=== PATIENT | male | born 1970 | race African-American/Black ===

== ENCOUNTER 2023-05-21 17:18 | Emergency (ER) | payer SELFPAY ==
[~2023-05-21] VITALS: Ht 175.3 cm; Wt 86.6 kg
[2023-05-21 17:20] VITALS: BP 152/93; O2SAT 97
[2023-05-21] MEDS ORDERED: ACETAMINOPHEN 500 MG TAB PO ONE (19:55)
[2023-05-21 20:40] LABS: RSV AMPLIFICATION NEGATIVE (NEGATIVE)
[2023-05-21 20:52] VITALS: TEMP 100.1
[2023-05-21] MEDS ORDERED: KETOROLAC 60MG 2ML VIAL IM ONE (21:15)
[2023-05-21] MEDS ORDERED: BENZONATATE 100MG CAPSULE PO ONE (21:15)
[2023-05-21] MEDS ORDERED: BENZ200C70 PO (21:18)
[2023-05-21] MEDS ORDERED: NAPR-837 PO (21:18)
[2023-05-21] MEDS ORDERED: MUCI1TAB16 PO (21:18)
== END 2023-05-21 21:36 | disposition home or self-care (01) ==
LOC: M ED 17:18
DX: J06.9 Acute upper respiratory infection, unspecified (principal); R09.1 Pleurisy; R05.9 Cough, unspecified; I10 Essential (primary) hypertension; F17.290 Nicotine dependence, other tobacco product, uncomplicated
CPT/HCPCS: 71046; 87631; 96372; 99283; J1885

== ENCOUNTER 2023-09-04 09:39 | Emergency (ER) | payer SELFPAY ==
[~2023-09-04] VITALS: Ht 175.3 cm; Wt 92.5 kg
[~2023-09-04 09:39] MED LIST: BENZ200C70 PO; MUCI1TAB16 PO; NAPR-837 PO
[2023-09-04] MEDS ORDERED: IBUP-1022 PO (11:28)
[2023-09-04 11:53] VITALS: BP 140/88; TEMP 98.4; O2SAT 97
== END 2023-09-04 11:55 | disposition home or self-care (01) ==
LOC: M ED 09:39
DX: S93.402A Sprain of unspecified ligament of left ankle, initial encounter (principal); X50.1XXA Overexertion from prolonged static or awkward postures, initial encounter; Y92.009 Unspecified place in unspecified non-institutional (private) residence as the place of occurrence of the external cause; Y93.9 Activity, unspecified; Y99.9 Unspecified external cause status; I10 Essential (primary) hypertension

== ENCOUNTER → 2023-11-14 | Outpatient (CLI) | payer SELFPAY ==
[~2023-11-14] MED LIST changes: +AMOX875T2 PO; +IBUP-1022 PO; +SERT-141 PO
== END ==
LOC: M SOG 08:03
PROVIDERS: ATTEND Orthopaedic Surgery
DX: M17.0 Bilateral primary osteoarthritis of knee (principal)

== ENCOUNTER 2023-12-01 08:20 | Emergency (ER) | payer OTHER, SELFPAY ==
[~2023-12-01] VITALS: Ht 175.3 cm; Wt 90.9 kg
[~2023-12-01 08:20] MED LIST changes: -AMOX875T2 PO; -SERT-141 PO
[2023-12-01] MEDS ORDERED: SERT-141 PO (08:43)
[2023-12-01] MEDS: AUGMENTIN 875 MG TAB PO ONE (11:29)
[2023-12-01] MEDS ORDERED: AMOX875T2 PO (12:20)
[2023-12-01 12:21] VITALS: BP 150/86; TEMP 98.3; O2SAT 97
== END 2023-12-01 12:26 | disposition home or self-care (01) ==
LOC: M ED 08:20
DX: S62.634A Displaced fracture of distal phalanx of right ring finger, initial encounter for closed fracture (principal); L03.011 Cellulitis of right finger; W54.0XXA Bitten by dog, initial encounter; Y92.89 Other specified places as the place of occurrence of the external cause; Y93.9 Activity, unspecified; Y99.9 Unspecified external cause status; I10 Essential (primary) hypertension; F17.200 Nicotine dependence, unspecified, uncomplicated

== ENCOUNTER 2024-02-11 09:05 | Day surgery (SDC) | payer OTHER ==
[~2024-02-11] VITALS: Ht 175.3 cm; Wt 88.5 kg
[~2024-02-11 09:05] MED LIST changes: +AMOX875T2 PO; +NS 1,000 ML IV ONE; +SERT-141 PO
[2024-02-11] MEDS ORDERED: propofoL 200 MG/20 ML VIAL As Ordered ONE (10:00)
[2024-02-11] MEDS ORDERED: LIDOCAINE 2% 100MG/5ML SDV (FOR ANES.) As Ordered ONE (10:00)
[2024-02-11 12:11] VITALS: TEMP 96.8
[2024-02-11 12:26] VITALS: BP 160/98; O2SAT 97
== END 2024-02-11 12:43 | disposition home or self-care (01) ==
LOC: M OPP 09:05
PROVIDERS: ATTEND Surgery
DX: Z12.11 Encounter for screening for malignant neoplasm of colon (principal); Z80.0 Family history of malignant neoplasm of digestive organs; K63.5 Polyp of colon; K57.30 Diverticulosis of large intestine without perforation or abscess without bleeding; I10 Essential (primary) hypertension; Z79.899 Other long term (current) drug therapy; Z87.891 Personal history of nicotine dependence

== ENCOUNTER → 2024-02-16 | Outpatient (CLI) | payer OTHER ==
[~2024-02-16] MED LIST changes: -NS 1,000 ML IV ONE
== END ==
LOC: M SOG 07:51
PROVIDERS: ATTEND Orthopaedic Surgery
DX: M17.11 Unilateral primary osteoarthritis, right knee (principal)

== ENCOUNTER → 2024-02-17 | Outpatient (CLI) | payer OTHER | LOC: M SOG 08:01 | PROVIDERS: ATTEND Orthopaedic Surgery | DX: M17.11 Unilateral primary osteoarthritis, right knee (principal); Z53.9 Procedure and treatment not carried out, unspecified reason ==

== ENCOUNTER 2024-07-07 09:58 | Emergency (ER) | payer OTHER ==
[~2024-07-07] VITALS: Ht 175.3 cm; Wt 87.4 kg
[2024-07-07] MEDS: KETOROLAC 60MG 2ML VIAL IM ONE (12:45)
[2024-07-07] MEDS: ACETAMINOPHEN 500 MG TAB PO ONE (12:45)
[2024-07-07 12:50] LABS: BASO # 0.1 10^3/uL (0.0-0.2); BASO % 0.5 % (0.0-1.0); EOS % 0.2 % (0.0-3.0); HEMATOCRIT 46.4 % (42.0-52.0); HEMOGLOBIN 15.8 g/dl (13.5-17.5); LYMPH # 1.9 10^3/uL (1.5-5.0); MEAN CORPUSCULAR HEMOGLOBIN 31.6 pg (27.0-33.0); MEAN CORPUSCULAR HGB CONC 34.1 g/dl (32.0-36.5); MEAN CORPUSCULAR VOLUME 92.8 fl (80.0-96.0); MONO # 0.8 10^3/uL (0.0-0.8); MONO % 6.8 % (2.0-8.0); NEUTROPHILS # 8.8 10^3/uL (1.5-8.5); PLATELET COUNT, AUTOMATED 439 10^3/uL (150-450); WHITE BLOOD COUNT 11.6 10^3/uL (4.0-10.0)
[2024-07-07 13:14] VITALS: BP 161/95; TEMP 98.9; O2SAT 97
[2024-07-07 13:20] LABS: BLOOD UREA NITROGEN 8 MG/DL (9-23); CALCIUM LEVEL 9.6 MG/DL (8.5-10.1); CARBON DIOXIDE LEVEL 27 MMOL/L (20-31); CHLORIDE LEVEL 106 MMOL/L (98-107); CREATININE FOR GFR 0.99 MG/DL (0.70-1.30); GLOMERULAR FILTRATION RATE > 60.0 (>56); GLUCOSE, FASTING 90 MG/DL (60-100); POTASSIUM SERUM 4.3 MMOL/L (3.5-5.1); SODIUM LEVEL 137 MMOL/L (136-145); URIC ACID 9.3 MG/DL (3.7-9.2)
[2024-07-07] MEDS ORDERED: PRED20TA PO ×2 (13:36→13:37)
[2024-07-07] MEDS ORDERED: NAPR-837 PO (13:36)
== END 2024-07-07 13:49 | disposition home or self-care (01) ==
LOC: M ED 09:58
DX: M10.062 Idiopathic gout, left knee (principal); F17.200 Nicotine dependence, unspecified, uncomplicated; M17.12 Unilateral primary osteoarthritis, left knee
CPT/HCPCS: 36415; 73564; 80048; 84550; 85025; 96372; 99284; J1885

== ENCOUNTER 2024-09-10 17:35 | Emergency (ER) | payer OTHER ==
[~2024-09-10] VITALS: Ht 175.3 cm; Wt 86.2 kg
[~2024-09-10 17:35] MED LIST changes: +PRED20TA PO
[2024-09-10 21:01] LABS: BASO # 0.1 10^3/uL (0.0-0.2); BASO % 0.7 % (0.0-1.0); EOS # 0.2 10^3/uL (0.0-0.5); EOS % 1.5 % (0.0-3.0); HEMATOCRIT 44.5 % (42.0-52.0); HEMOGLOBIN 15.5 g/dl (13.5-17.5); LYMPH # 2.3 10^3/uL (1.5-5.0); LYMPH % 21.6 % (24.0-44.0); MEAN CORPUSCULAR HEMOGLOBIN 32.1 pg (27.0-33.0); MEAN CORPUSCULAR HGB CONC 34.8 g/dl (32.0-36.5); MEAN CORPUSCULAR VOLUME 92.1 fl (80.0-96.0); MONO # 0.9 10^3/uL (0.0-0.8); MONO % 8.4 % (2.0-8.0); NEUTROPHILS % 67.4 % (36.0-66.0); PLATELET COUNT, AUTOMATED 515 10^3/uL (150-450); RED BLOOD COUNT 4.83 10^6/uL (4.30-6.10); WHITE BLOOD COUNT 10.4 10^3/uL (4.0-10.0)
[2024-09-10 21:29] LABS: BLOOD UREA NITROGEN 13 MG/DL (9-23); CALCIUM LEVEL 9.8 MG/DL (8.5-10.1); CARBON DIOXIDE LEVEL 25 MMOL/L (20-31); CHLORIDE LEVEL 103 MMOL/L (98-107); CREATININE FOR GFR 1.08 MG/DL (0.70-1.30); GLOMERULAR FILTRATION RATE > 60.0 (>56); GLUCOSE, FASTING 121 MG/DL (60-100); POTASSIUM SERUM 4.8 MMOL/L (3.5-5.1); SODIUM LEVEL 134 MMOL/L (136-145)
[2024-09-10 21:43] LABS: ERYTHROCYTE SEDIMENTATION RATE 43 mm/hr (0-20)
[2024-09-10 21:46] LABS: C REACTIVE PROTEIN QUANTITATIV 4.33 MG/DL (<1.0)
[2024-09-10 21:52] LABS: URIC ACID 10.2 MG/DL (3.7-9.2)
[2024-09-10] MEDS ORDERED: NAPR-837 PO (22:05)
[2024-09-10] MEDS ORDERED: PRED20TA PO (22:05)
[2024-09-10] MEDS: KETOROLAC 60MG 2ML VIAL IM ONE (22:07)
[2024-09-10] MEDS: predniSONE 20 MG TAB PO ONE (22:07)
[2024-09-10 22:10] VITALS: BP 148/96; TEMP 98.1; O2SAT 99
== END 2024-09-10 22:48 | disposition home or self-care (01) ==
LOC: M ED 17:35
DX: M10.9 Gout, unspecified (principal); K22.0 Achalasia of cardia; F17.200 Nicotine dependence, unspecified, uncomplicated
CPT/HCPCS: 80048; 84550; 85025; 85652; 86140; 96372; 99283; J1885; J7512

== ENCOUNTER 2024-09-30 13:20 | Emergency (ER) | payer OTHER ==
[~2024-09-30] VITALS: Ht 175.3 cm; Wt 92.2 kg
[2024-09-30 14:03] LABS: BASO % 0.4 % (0.0-1.0); EOS # 0.1 10^3/uL (0.0-0.5); HEMATOCRIT 41.1 % (42.0-52.0); HEMOGLOBIN 14.3 g/dl (13.5-17.5); LYMPH % 20.3 % (24.0-44.0); MEAN CORPUSCULAR HEMOGLOBIN 31.6 pg (27.0-33.0); MEAN CORPUSCULAR HGB CONC 34.8 g/dl (32.0-36.5); MEAN CORPUSCULAR VOLUME 90.9 fl (80.0-96.0); MONO # 0.7 10^3/uL (0.0-0.8); MONO % 7.1 % (2.0-8.0); NEUTROPHILS % 70.9 % (36.0-66.0); PLATELET COUNT, AUTOMATED 426 10^3/uL (150-450); RED BLOOD COUNT 4.52 10^6/uL (4.30-6.10); WHITE BLOOD COUNT 9.9 10^3/uL (4.0-10.0)
[2024-09-30 14:11] LABS: ERYTHROCYTE SEDIMENTATION RATE 19 mm/hr (0-20)
[2024-09-30 14:32] LABS: ALKALINE PHOSPHATASE 121 U/L (40-129); ALT/SGPT 41 U/L (7.0-40); AST/SGOT 37 U/L (<34); BILIRUBIN,DIRECT 0.2 MG/DL (<0.4); BILIRUBIN,TOTAL 0.7 MG/DL (0.3-1.2); BLOOD UREA NITROGEN 12 MG/DL (9-23); C REACTIVE PROTEIN QUANTITATIV 1.32 MG/DL (<1.0); CALCIUM LEVEL 9.4 MG/DL (8.5-10.1); CARBON DIOXIDE LEVEL 23 MMOL/L (20-31); CHLORIDE LEVEL 105 MMOL/L (98-107); CREATININE FOR GFR 0.98 MG/DL (0.70-1.30); GLOMERULAR FILTRATION RATE > 60.0 (>56); GLUCOSE, FASTING 86 MG/DL (60-100); POTASSIUM SERUM 4.3 MMOL/L (3.5-5.1); SODIUM LEVEL 138 MMOL/L (136-145); TOTAL PROTEIN 7.3 G/DL (5.7-8.2)
[2024-09-30] MEDS: KETOROLAC 60MG 2ML VIAL IM ONE (18:02)
[2024-09-30 18:51] LABS: PROCALCITONIN 0.04 ng/ml
[2024-09-30 19:02] VITALS: BP 167/88; TEMP 97.6; O2SAT 98
== END 2024-09-30 19:04 | disposition home or self-care (01) ==
LOC: M ED 13:20
DX: M25.521 Pain in right elbow (principal); M19.021 Primary osteoarthritis, right elbow
CPT/HCPCS: 73080; 73200; 80048; 80076; 84145; 85025; 85652; 86140; 96372; 99284; J1885

== ENCOUNTER → 2024-10-04 | Outpatient (CLI) | payer OTHER | LOC: M SOG 08:13 | PROVIDERS: ATTEND Orthopaedic Surgery | DX: M25.521 Pain in right elbow (principal); M25.421 Effusion, right elbow ==

== ENCOUNTER → 2024-10-08 | Outpatient (CLI) | payer OTHER ==
[2024-10-08 10:43] LABS: HEMATOCRIT 42.4 % (42.0-52.0); HEMOGLOBIN 14.6 g/dl (13.5-17.5); MEAN CORPUSCULAR HEMOGLOBIN 31.7 pg (27.0-33.0); MEAN CORPUSCULAR HGB CONC 34.4 g/dl (32.0-36.5); MEAN CORPUSCULAR VOLUME 92.2 fl (80.0-96.0); PLATELET COUNT, AUTOMATED 618 10^3/uL (150-450)
[2024-10-08 10:47] LABS: ERYTHROCYTE SEDIMENTATION RATE 19 mm/hr (0-20)
[2024-10-08 11:04] LABS: C REACTIVE PROTEIN QUANTITATIV < 0.50 MG/DL (<1.0)
[2024-10-08 11:11] LABS: PROCALCITONIN <0.04 ng/ml
== END ==
LOC: M LAB 09:55
PROVIDERS: ATTEND Orthopaedic Surgery
DX: M13.821 Other specified arthritis, right elbow (principal); Z79.899 Other long term (current) drug therapy

== ENCOUNTER 2024-12-02 12:06 | Emergency (ER) | payer OTHER ==
[~2024-12-02] VITALS: Ht 175.3 cm; Wt 90.0 kg
[2024-12-02] MEDS ORDERED: PRED20TA PO (13:45)
[2024-12-02] MEDS ORDERED: NAPR-885 PO (13:45)
[2024-12-02 13:56] VITALS: BP 149/98; TEMP 98.2; O2SAT 96
[2024-12-02] MEDS: KETOROLAC 60MG 2ML VIAL IM ONE (13:57)
== END 2024-12-02 14:05 | disposition home or self-care (01) ==
LOC: M ED 12:06
DX: M10.9 Gout, unspecified (principal)
CPT/HCPCS: 96372; 99284; J1885

== ENCOUNTER 2024-12-23 09:09 | Emergency (ER) | payer OTHER ==
[~2024-12-23] VITALS: Ht 175.3 cm; Wt 90.4 kg
[~2024-12-23 09:09] MED LIST changes: +NAPR-885 PO
[2024-12-23] MEDS ORDERED: TRIAMCINOLONE ACET 0.1% OINTMENT 15GM TOP PRN ×2 (10:20→10:30)
[2024-12-23] MEDS ORDERED: CLAR10CA3 PO (10:23)
[2024-12-23] MEDS ORDERED: PRED20TA PO (10:23)
[2024-12-23] MEDS ORDERED: TRIA1OI TOP (10:23)
[2024-12-23] MEDS: diphenhydrAMINE 50MG/ML VIAL IM ONE (10:32)
[2024-12-23] MEDS: predniSONE 20 MG TAB PO ONE (10:33)
[2024-12-23 10:49] VITALS: BP 140/90; TEMP 97.4; O2SAT 96
== END 2024-12-23 10:53 | disposition home or self-care (01) ==
LOC: M ED 09:09
DX: R21 Rash and other nonspecific skin eruption (principal)
CPT/HCPCS: 96372; 99283; J1200; J7512

== ENCOUNTER 2025-02-01 08:10 | Emergency (ER) | payer OTHER ==
[~2025-02-01] VITALS: Ht 175.3 cm; Wt 91.5 kg
[~2025-02-01 08:10] MED LIST changes: +CLAR10CA3 PO; +TRIA1OI TOP
[2025-02-01 08:13] VITALS: TEMP 98.3
[2025-02-01] MEDS ORDERED: IBUP-1114 PO (08:17)
[2025-02-01 09:22] LABS: BASO # 0.1 10^3/uL (0.0-0.2); BASO % 1.2 % (0.0-1.0); EOS # 0.1 10^3/uL (0.0-0.5); EOS % 1.7 % (0.0-3.0); HEMATOCRIT 46.7 % (42.0-52.0); HEMOGLOBIN 15.9 g/dl (13.5-17.5); LYMPH # 1.9 10^3/uL (1.5-5.0); MEAN CORPUSCULAR HEMOGLOBIN 31.5 pg (27.0-33.0); MEAN CORPUSCULAR VOLUME 92.5 fl (80.0-96.0); MONO # 0.7 10^3/uL (0.0-0.8); MONO % 12.2 % (2.0-8.0); NEUTROPHILS # 3.2 10^3/uL (1.5-8.5); NEUTROPHILS % 52.2 % (36.0-66.0); PLATELET COUNT, AUTOMATED 498 10^3/uL (150-450); RED BLOOD COUNT 5.05 10^6/uL (4.30-6.10); WHITE BLOOD COUNT 6.1 10^3/uL (4.0-10.0)
[2025-02-01 09:37] VITALS: BP 155/83
[2025-02-01 09:45] LABS: BLOOD UREA NITROGEN 7 MG/DL (9-23); CALCIUM LEVEL 9.6 MG/DL (8.5-10.1); CARBON DIOXIDE LEVEL 26 MMOL/L (20-31); CHLORIDE LEVEL 107 MMOL/L (98-107); GLOMERULAR FILTRATION RATE > 90.0 (>56); GLUCOSE, FASTING 93 MG/DL (60-100); POTASSIUM SERUM 4.7 MMOL/L (3.5-5.1); SODIUM LEVEL 140 MMOL/L (136-145)
[2025-02-01] MEDS ORDERED: ISOVUE-370 76% 100ML VIAL As Ordered ONE (09:56)
[2025-02-01 10:30] VITALS: O2SAT 86
[2025-02-01] MEDS ORDERED: LOSA25TA13 PO (10:36)
== END 2025-02-01 11:10 | disposition home or self-care (01) ==
LOC: M ED 08:10
DX: I10 Essential (primary) hypertension (principal); B34.8 Other viral infections of unspecified site; F32.A Depression, unspecified; F17.200 Nicotine dependence, unspecified, uncomplicated; F12.10 Cannabis abuse, uncomplicated
CPT/HCPCS: 71046; 71275; 80048; 85025; 87486; 87581; 87633; 87798; 93005; 99284; Q9967

== ENCOUNTER 2025-06-10 01:59 | Emergency (ER) | payer OTHER ==
[~2025-06-10] VITALS: Ht 175.3 cm; Wt 86.1 kg
[~2025-06-10 01:59] MED LIST changes: -IBUP-1022 PO; +IBUP-1114 PO; +IBUP600T42 PO; +LOSA25TA13 PO
[2025-06-10 02:03] VITALS: BP 132/87; TEMP 99; O2SAT 97
[2025-06-10] MEDS ORDERED: COLC0.6T53 (02:07)
[2025-06-10] MEDS ORDERED: COLC0.6T53 PO (10:04)
== END 2025-06-10 03:50 | disposition home or self-care (01) ==
LOC: M ED 01:59
DX: M10.9 Gout, unspecified (principal); F17.200 Nicotine dependence, unspecified, uncomplicated
CPT/HCPCS: 96372; 99283; J2919

== ENCOUNTER 2025-07-07 11:11 | Emergency (ER) | payer OTHER ==
[~2025-07-07] VITALS: Ht 175.3 cm; Wt 85.6 kg
[~2025-07-07 11:11] MED LIST changes: +COLC0.6T53; +COLC0.6T53 PO
[2025-07-07 11:17] VITALS: BP 148/95; TEMP 98.1; O2SAT 98
[2025-07-07] MEDS ORDERED: ALLO100T PO (11:21)
[2025-07-07] MEDS ORDERED: INDO50CA91 PO (11:49)
[2025-07-07] MEDS: INDOMETHACIN 25 MG CAP PO ONE (12:05)
== END 2025-07-07 12:15 | disposition home or self-care (01) ==
LOC: M ED 11:11
DX: M10.071 Idiopathic gout, right ankle and foot (principal); F41.9 Anxiety disorder, unspecified; F32.A Depression, unspecified; F17.200 Nicotine dependence, unspecified, uncomplicated